=== PATIENT | male | born 1960 | race Two or more races ===

== ENCOUNTER 2017-11-04 13:18 | Emergency (ER) | payer BC, OTHER ==
[~2017-11-04] VITALS: Ht 177.8 cm; Wt 92.5 kg
[2017-11-04 15:13] VITALS: BP 138/77
[2017-11-04] MEDS ORDERED: TETANUS-DIPTH-ACEL PERTUSSIS 0.5ML SYRG IM ONE (16:00)
[2017-11-04] MEDS ORDERED: NEOMYCIN-BACITRACIN-POLYM UNITDOSE PKG TOP OINT TOP ONE (16:00)
== END 2017-11-04 16:00 | disposition home or self-care (01) ==
LOC: ER 13:18
DX: S61.012A Laceration without foreign body of left thumb without damage to nail, initial encounter (principal); F17.210 Nicotine dependence, cigarettes, uncomplicated; W45.8XXA Other foreign body or object entering through skin, initial encounter; Y93.89 Activity, other specified; Y92.89 Other specified places as the place of occurrence of the external cause; Y99.8 Other external cause status
CPT/HCPCS: 12002; 73140; 90471; 90715

== ENCOUNTER 2025-03-14 12:10 | Emergency (ER) | payer BC, OTHER ==
[~2025-03-14] VITALS: Ht 172.7 cm; Wt 89.9 kg
--- NOTE | 2025-03-14 12:43 | ED.PDOC ---
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 Therapies tried: none Denies vision changes Denies eye discharge Denies hearing changes, nausea, vomiting Denies eye pain with movement, eye pain in general, difficulty keeping eye open, sensitivity to light Chief Complaint: Eye Problem Time Seen by MD: 12:29 Primary Care Provider: NONE Reviewed Notes: Nurses Notes, Medications, Allergies Allergies: Coded Allergies: NO KNOWN ALLERGIES (Unverified , 03/14/25) Home Meds Active Scripts Ciprofloxacin Hcl (Ophth) (Ciprofloxacin Hcl) 0.3 % Eli, 1 EVETTE OP QID for 5 Days, #1 BOTTLE 0 Refills Prov:WOOD NEWBERRY Angelia [employer] 03/14/25 Information Source: Patient Past Medical History PAST MEDICAL HISTORY: Denies Surgical History: Denies all surgeries Family History Family History: Unknown Social History Smoker: Cigarettes Lives In: Home All Other Systems: Reviewed and Negative (PER HPI) Physical Exam General Appearance: No Apparent Distress, Normal HEENT: Normal ENT Inspection, Pharynx Normal, TMs Normal Neck: Full Range of Motion, Non-Tender, Normal, Normal Inspection Respiratory: Chest Non-Tender, Lungs Clear, No Accessory Muscle Use, No Respiratory Distress, Normal Breath Sounds Cardiovascular: No Murmur, No Gallop, Regular Rate/Rhythm Breast Exam: Deferred Gastrointestinal: No Organomegaly, Non Tender, No Pulsatile Mass, Normal Bowel Sounds, Soft Genitalia: Deferred Pelvic: Deferred Rectal: Deferred Extremities: No calf tenderness, Normal capillary refill, Normal inspection, Normal range of motion, Non-tender, No pedal edema Musculoskeletal : Apperance: Normal Neurologic: Alert, No Motor Deficits, Normal Affect, Normal Mood, No Sensory Deficits Cerebellar Function: Normal Reflexes: Normal Skin: Dry, Normal Color, Warm Lymphatic: No Adenopathy Was a procedure done? Was a procedure done?: No Images 1 - No orbital swelling. No erythema. No FB. EENT DIFF Eye: Iritis/Uveitis, Rust Ring, Other X-Ray, Labs, Meds, VS Vital Signs Date Time Temp Pulse Resp B/P (MAP) Pulse Ox O2 Delivery O2 Flow Rate FiO2 03/14/25 13:34 67 16 98 Room Air 03/14/25 13:34 98.2 67 16 143/84 (103) 98 98.2 03/14/25 12:40 98.3 66 18 139/77 (97) 96 98.3 X-Ray, Labs, Meds, VS Comment 65 year old male presents for FB sensation to the right eye The Pt presents with eye pain likely due to foreign body versus other cause of eye irritation.. We saw - on fluorescein staining of eye. Negative Srinivasa sign, No history of discharge so less likely bacterial or viral conjunctivitis. No significant photophobia. The Pt is otherwise well-appearing without evidence of globe rupture, or superimposed infection. Prescribed antibiotics and instructed the Pt to follow up closely with ophthalmology and avoid wearing contacts_. ED removal after topical anesthetic Irrigated with NS 30- to 25-gauge needle Approach from tangential angle Repeat Srinivasa test negative Abx Rx Strict return precautions discussed Time of 1ST Reevaluation: 13:00 Reevaluation 1ST: Improved Patient Education/Counseling: Diagnosis, Treatment, Prognosis Family Education/Counseling: Diagnosis, Treatment, Prognosis SEPSIS Sepsis Screen Vital Signs Date Time Temp Pulse Resp B/P (MAP) Pulse Ox O2 Delivery O2 Flow Rate FiO2 03/14/25 13:34 67 16 98 Room Air 03/14/25 13:34 98.2 67 16 143/84 (103) 98 98.2 03/14/25 12:40 98.3 66 18 139/77 (97) 96 98.3 Departure 1 Departure Time of Disposition: 13:20 Impression: Primary Impression: Corneal rust ring of right eye Disposition: 01 HOME / SELF CARE / HOMELESS Condition: Fair e-Prescriptions Ciprofloxacin Hcl (Ophth) (Ciprofloxacin Hcl) 0.3 % Eli 1 EVETTE OP QID for 5 Days, #1 BOTTLE 0 Refills Prov: WOOD NEWBERRY NP 03/14/25 Critical Care Note Critical Care Time?: No Stability Stability form required: No Heart Score Heart Score: Heart Score Response (Comments) Value History N/A 0 EKG N/A 0 Age N/A 0 Risk Factors N/A 0 Troponin N/A 0 Total 0 WOOD NEWBERRY NP Mar 14, 2025 12:43
[2025-03-14] MEDS ORDERED: CIPR0.3S19 OP (13:22)
[2025-03-14 13:34] VITALS: BP 143/84; PULSE 67; RESP 16; TEMP 98.2; O2SAT 98
[2025-03-14] MEDS: TETANUS-DIPTH-ACEL PERTUSSIS 0.5ML SYR Tdap IM ONE (13:41)
== END 2025-03-14 13:47 | disposition home or self-care (01) ==
LOC: ER 12:10
DX: H16.021 Ring corneal ulcer, right eye (principal); F17.210 Nicotine dependence, cigarettes, uncomplicated
CPT/HCPCS: 90471; 90715